=== PATIENT | female | born 1980 | race Two or more races ===

== ENCOUNTER → 2024-12-15 | Emergency (ER) | payer OTHER ==
[~2024-12-15] VITALS: Ht 152.4 cm; Wt 65.8 kg
[2024-12-15 21:50] VITALS: BP 148/94; O2SAT 97
== END | disposition left against medical advice (07) ==
LOC: ER 21:08
DX: Z53.21 Procedure and treatment not carried out due to patient leaving prior to being seen by health care provider (principal)